=== PATIENT | male | born 1955 | race Caucasian/White ===

== ENCOUNTER → 2019-06-15 | Outpatient (CLI) | payer MEDICARE ==
[2019-06-15 14:29] LABS: Partial Thromboplastin Time 23.5 sec (22.0-30.0); Prothrombin Time 10.5 sec (9.0-12.0)
[2019-06-15 14:31] LABS: Basophils # (A) 0.1 k/uL (0-0.2); Basophils % (A) 1 %; Eosinophils # (A) 0.1 k/uL (0-0.7); Eosinophils % (A) 2 %; HCT 51.3 % (39.0-53.0); Lymphocytes # (A) 1.8 k/uL (1.0-4.8); Lymphocytes % (A) 25 %; MCH 33.1 pg (25.0-35.0); MCHC 35.1 g/dL (31.0-37.0); MCV 94.3 fL (80.0-100.0); Mean Platelet Volume 6.8; Monocytes # (A) 0.4 k/uL (0-1.0); Monocytes % (A) 6 %; Neutrophils # (A) 4.7 k/uL (1.3-7.7); Neutrophils % (A) 64 %; Platelet Count 210 k/uL (150-450); RBC 5.44 m/uL (4.30-5.90); WBC 7.3 k/uL (3.8-10.6)
[2019-06-15 14:41] LABS: ALT 35 U/L (21-72); AST 29 U/L (17-59); African American GFR (CKD) >90 (>60 ml/min/1.73 sqM); Albumin 4.5 g/dL (3.5-5.0); Alkaline Phosphatase 60 U/L (38-126); Anion Gap 8 mmol/L; Blood Urea Nitrogen 16 mg/dL (9-20); Calcium 10.5 mg/dL (8.4-10.2); Carbon Dioxide 30 mmol/L (22-30); Chloride 105 mmol/L (98-107); Glucose 110 mg/dL (74-99); Potassium 5.2 mmol/L (3.5-5.1); Sodium 143 mmol/L (137-145); Total Bilirubin 0.3 mg/dL (0.2-1.3); Total Protein 7.4 g/dL (6.3-8.2)
[2019-06-15 14:55] LABS: Appearance,Urine Clear (Clear); Bilirubin,Urine Negative (Negative); Blood,Urine Negative (Negative); Color,Urine Yellow; Glucose,Urine (UA) Negative (Negative); Ketones,Urine Negative (Negative); Leukocyte Esterase,Urine Negative (Negative); Nitrite,Urine Negative (Negative); PH, Urine 6.5 (5.0-8.0); Protein,Urine Negative (Negative); Urobilinogen,Urine <2.0 mg/dL (<2.0)
--- NOTE | 2019-06-15 17:30 | XR ---
EXAMINATION TYPE: XR chest 2V DATE OF EXAM: 06/15/2019 COMPARISON: NONE HISTORY: Preadmission testing TECHNIQUE: Frontal and lateral views of the chest are obtained. FINDINGS: Heart and mediastinum are normal. Lungs are clear. Diaphragm is normal. Bony thorax appear s normal. IMPRESSION: Normal chest
== END | disposition home or self-care (01) ==
LOC: LABPAT 13:15
PROVIDERS: ATTEND Orthopaedic Surgery Orthopaedic Surgery of the Spine
DX: Z01.818 Encounter for other preprocedural examination (principal); Z01.812 Encounter for preprocedural laboratory examination; G95.89 Other specified diseases of spinal cord
CPT/HCPCS: 71046; 80053; 81003; 85025; 85610; 85730

== ENCOUNTER → 2019-06-29 | Outpatient (CLI) | payer MEDICARE | LOC: LABPAT 13:34 | PROVIDERS: ATTEND Orthopaedic Surgery Orthopaedic Surgery of the Spine | DX: Z01.812 Encounter for preprocedural laboratory examination (principal); M50.00 Cervical disc disorder with myelopathy, unspecified cervical region | CPT/HCPCS: 36415; 86850; 86900; 86901 ==

== ENCOUNTER 2019-07-01 06:07 | Day surgery (SDC) | payer MEDICARE ==
[2019-06-22 18:07] VITALS: BMI 30.2
[~2019-07-01 06:07] MED LIST: BACITRACIN 50,000 UNIT, POLYMYXIN B 500,000 UNIT in SODIUM CHLORIDE 0.9% IRRIGATIO 1,00... IRRIGATION ONE; LIDOCAINE 1% 20 ML VIAL (10MG/ML) FOR IV START INTRADERMA PRN; ONDANSETRON 4 MG/2 ML VIAL IVP ONE
[2019-07-01] MEDS: LACTATED RINGERS 1,000 ML IV SCH (06:41)
[2019-07-01] MEDS ORDERED: SUCCINYLCHOLINE CHLORIDE 100 MG/5 ML SYR IV ONE (07:25)
[2019-07-01] MEDS ORDERED: PROPOFOL 10 MG/ML 20 ML VIAL IV ONE (07:25)
[2019-07-01] MEDS ORDERED: HYDROmorphone (PF) 1 MG/ML ONE (07:25)
[2019-07-01] MEDS ORDERED: DEXAMETHASONE SOD PHOS (MDV) 100 MG/10 ML VIAL ONE (07:25)
[2019-07-01] MEDS ORDERED: LIDOCAINE 1% INJ 10MG/ML (20 ML MDV) ONE (07:25)
[2019-07-01] MEDS ORDERED: fentaNYL (PF) 50 MCG/ML 2 ML AMP ONE (07:25)
[2019-07-01] MEDS ORDERED: ePHEDrine SULFATE/0.9% NACL/PF 50 MG/5 ML SYRINGE IV ONE (07:25)
[2019-07-01] MEDS ORDERED: MIDAZOLAM 2 MG/2 ML VIAL ONE (07:25)
[2019-07-01] MEDS ORDERED: DEXMEDETOMIDINE 200 MCG/2 ML VIAL IV ONE (07:25)
[2019-07-01] MEDS ORDERED: THROMBIN (BOVINE) 5,000 UNIT VIAL TOPICAL ONE (07:30)
[2019-07-01] MEDS ORDERED: LIDOCAINE 0.5%-EPI 1:200,000 50 ML VIAL SQ ONE (07:30)
[2019-07-01] MEDS ORDERED: GELATIN SPONGE,ABSORB (LARGE) 1 EACH SPONGE TOPICAL ONE (07:30)
--- NOTE | 2019-07-01 09:41 | XR ---
EXAMINATION TYPE: XR cervical spine 1V DATE OF EXAM: 07/01/2019 COMPARISON: NONE HISTORY: Needle placement TECHNIQUE: One crosstable lateral view cervical spine FINDINGS: Surgical instruments overlying the disc space of C4-C5 anteriorly. Multilevel degenerative disc disease and hypertrophic changes are seen. Vertebral alignment is demonstrated to the level C6. Suggestion of an endotracheal tube. Prevertebral soft tissues are somewhat thickened which may be pos tsurgical correlate clinically. IMPRESSION: Intraoperative localization
[2019-07-01] MEDS ORDERED: LACTATED RINGERS 1,000 ML IV ONE (10:01)
[2019-07-01] MEDS ORDERED: BENZOCAINE/MENTHOL LOZENG 1 EACH LOZENGE MUCOUS MEM PRN (10:13)
[2019-07-01] MEDS ORDERED: BISACODYL 10 MG SUPP RECTAL PRN (10:13)
[2019-07-01] MEDS ORDERED: HYDROmorphone 0.5 MG/0.5 ML SYRINGE IVP PRN (10:13)
[2019-07-01] MEDS ORDERED: MAGNESIUM HYDROXIDE 2,400 MG/10 ML CUP PO PRN (10:13)
[2019-07-01] MEDS ORDERED: ONDANSETRON 4 MG/2 ML VIAL IVP PRN (10:13)
[2019-07-01] MEDS ORDERED: NITROGLYCERIN SL TABS 0.4 MG TAB SUBLINGUAL PRN (10:15)
[2019-07-01] MEDS ORDERED: ALBUTEROL NEBULIZED 2.5 MG/3 ML INHALATION PRN (10:15)
--- NOTE | 2019-07-01 10:22 | P.OP ---
Date of Procedure: 07/01/19 Preoperative Diagnosis: Cervical stenosis C3 4 C4 5 C5 6, herniated nucleus pulposis C3 4 C4 5 C5 6, neck pain, upper extremity radiculopathy, history of laminoplasty C3 4 C4 5 C5 6, cervical kyphosis Postoperative Diagnosis: Same Anesthesia: GETA Pathology: none sent Condition: stable Disposition: PACU Description of Procedure: BRIEF OPERATIVE NOTE Preoperative Diagnosis:Cervical stenosis C3 4 C4 5 C5 6, herniated nucleus pulposis C3 4 C4 5 C5 6, neck pain, upper extremity radiculopathy, history of laminoplasty C3 4 C4 5 C5 6, cervical kyphosis Postoperative Diagnosis:Cervical stenosis C3 4 C4 5 C5 6, herniated nucleus pulposis C3 4 C4 5 C5 6, neck pain, upper extremity radiculopathy, history of laminoplasty C3 4 C4 5 C5 6, cervical kyphosis Procedure: Anterior cervical decompression with discectomy and fusion C3 4 C4 5 C5 6 Placement of interbody graft C3 4 C4 5 C5 6 Application of anterior cervical plate C3 4 5 and 6 Surgeon: Dr. Sauer Coding Analyst: Nate Taylor is present throughout the entire the case persistence during positioning, dissection, exposure, visualization, and all crucial elements of the case as well as closure. Anesthesia: General anesthesia Estimated blood loss: Approximately 75 mL Complications: None apparent Components implanted: K2M [place] anterior cervical plate with 8 screws and Vikos interbody allograft bone graft with 1 mL of DBX bone putty Disposition: To recovery room in good stable condition. OPERATIVE INDICATIONS The patient has had long-standing issues in their neck and upper extremities. In 2014 he was having significant stenosis and upper extremity symptoms and underwent a laminoplasty an outside institution. He initially did have some improvement but has been having worsening symptoms at his neck and upper extremities over the past year. He's been having worsening over the past several months and was found to have some evidence of cervical stenosis with disc herniation and progressive kyphosis at his cervical spine. These symptoms correlated well with his neck cervical spine imaging. The patient has been through conservative treatment. He is not having any prolonged benefit despite aggressive conservative treatment. We discussed various treatment options including surgery, and the patient wishes to proceed with surgery We discussed the risk, patient's alternatives and benefits of surgery including but not limited to, risk of bleeding risk of infection, risk of need for further surgery, risk of decreased, loss of motion, muscle function, malunion nonunion, hardware failure, nerve damage, paralysis, heart attack, and . OPERATIVE SUMMARY After discussing all the risks, patient alternatives and benefits at length, the patient elected to proceed with surgical intervention, signed informed consent, and presented for their procedure. The patient was seen and examined in the preoperative holding area and the surgical site was marked. The patient was given antibiotics and brought to the operating room. The patient was positioned on the operating room table in a supine position being careful to pad any bony prominences and pressure points. The patient was sedated and intubated by anesthesia in standard fashion. Once the airway and C- spine were stabilized the patient's arms were padded and tucked at her side, with her shoulders gently taped. The head was placed in a donut pad with the neck in good neutral alignment and position. We were careful to maintain the patient's cervical spine and good neutral alignment and position throughout. The patient was prepped and draped in a normal standard fashion. An appropriate timeout and keystone protocol performed. We were able to proceed with the surgery. The local wound area was infiltrated with local anesthetic. An incision was made transversely approximately 2-1/2 cm over the appropriate levels at C5. Dissection was taken down subcutaneously to the level of the platysma which was split in line with its fibers. Dissection was taken with a carotid approach, with the trachea and esophagus medial and the carotid sheath laterally. We dissected down to the anterior surface of the vertebral bodies. Intraoperative x-ray was taken which showed a marker at the appropriate level of C4 5. With the appropriate level positively confirmed, we were able to proceed with discectomy at the appropriate levels. All of the operative levels were exposed appropriately. The patient had all their twitches back, and there was no evidence of recurrent laryngeal issue. The wound was copiously irrigated and suctioned dry as had been done periodically throughout the case. At the appropriate level/levels, starting first at C3 4 and then moving the C4 5 and th en moving to C5 6, I established an annulotomy with an 11 blade scalpel. A discectomy was performed with a combination of pituitary rongeurs, curettes, a high-speed bur, and Kerrison rongeurs. Any anterior osteophytes were taken down. There were particularly large osteophytes anteriorly at C5 6 which were taken down. The posterior longitudinal ligament was taken down as were any posterior osteophytes. This gave good central and bilateral foraminal decompression. There is no evidence of any dural tear or leak. The endplates were prepared with a high-speed bur. With the endplates in good parallel position, I was able to size for the appropriate size interbody graft. The wound was irrigated and suctioned dry the graft was prepared and malleted into position. It had good alignment and position with the anterior surface flush with the anterior surface of the vertebral bodies from C3 to C6. This was done similarly the appropriate levels first at C3 4 and then C4 5 and then C5 6. With the grafts intact, I was able to measure and contour and appropriate sized plate. The plate was positioned at the midline over the appropriate levels from C3 to C6. Screw holes were established with a hand drill and drill guide. Screws were placed in good alignment and position with excellent bony purchase. With the discectomy and then with plate placement and was able to adequate neutral alignment and positioning of the cervical spine from C3 to C6. The screws were placed appropriately and seated well. They were seated under the locking device. The construct was checked and found to be stable. Intraoperative x-ray was taken which showed good alignment and position of the implants at the appropriate levels. There was no evidence of any dural tear or leak. Good hemostasis was maintained. The wound was copiously irrigated and suctioned dry as had been done periodically throughout the case. The platysma was closed with absorbable suture. The subcutaneous tissue was closed. The subcuticular tissue was closed with absorbable suture. The wound was cleaned and dried and dressed appropriately. A soft cervical collar was placed appropriately. The patient was woken up by anesthesia, extubated, transferred back gently to their hospital bed and brought to the recovery room in good stable condition. The patient will be admitted to the hospital for appropriate postoperative care, medical management and monitoring. We will continue to follow them closely about the postoperative course.
--- NOTE | 2019-07-01 10:35 | XR ---
EXAMINATION TYPE: XR cervical spine 1V DATE OF EXAM: 07/01/2019 COMPARISON: NONE HISTORY: Hardware placement TECHNIQUE: One intraoperative crosstable lateral view submitted FINDINGS: ET tube noted. Postsurgical change appears in near-anatomic alignment as visualized. Technique and soft tissue artif act limits the exam. Hypertrophic spurring seen at C2-C3 there appears to be multilevel facet arthrop athy. IMPRESSION: Postsurgical change
[2019-07-01] MEDS: HYDROmorphone 0.5 MG/0.5 ML SYRINGE IVP PRN ×2 (10:54→11:14)
[2019-07-01] MEDS ORDERED: DIAZEPAM 5 MG TAB PO PRN (11:06)
[2019-07-01] MEDS ORDERED: DIAZEPAM 5 MG TAB PO ONE (11:15)
[2019-07-01 16:39] LABS: Glucose,Whole Blood 201 mg/dL (75-99)
[2019-07-01 16:41] LABS: Glucose,Whole Blood 219 mg/dL (75-99)
[2019-07-01] MEDS: SODIUM CHLORIDE 0.9% 1,000 ML IV SCH ×2 (16:42→21:47)
[2019-07-01] MEDS ORDERED: ATORVASTATIN 80 MG TAB PO SCH (21:00)
[2019-07-01] MEDS ORDERED: LORATADINE 10 MG TAB PO SCH (21:00)
[2019-07-01] MEDS: HYDROcodone/APAP 5-325MG 1 EACH TAB PO PRN (21:46)
[2019-07-01] MEDS: CHOLECALCIFEROL 1,000 UNIT TAB PO SCH (21:46)
[2019-07-01] MEDS: METOPROLOL TARTRATE 50 MG TAB PO SCH (21:46)
[2019-07-02 00:14] VITALS: RESP 16
[2019-07-02] MEDS: HYDROcodone/APAP 5-325MG 1 EACH TAB PO PRN ×2 (02:20→07:03)
[2019-07-02] MEDS: METOPROLOL TARTRATE 50 MG TAB PO SCH (07:24)
[2019-07-02] MEDS: CHOLECALCIFEROL 1,000 UNIT TAB PO SCH (07:24)
[2019-07-02] MEDS: LACTATED RINGERS 1,000 ML IV SCH (07:27)
[2019-07-02 07:55] VITALS: BP 152/82; PULSE 79; TEMP 98
--- NOTE | 2019-07-02 08:44 | P.DS ---
Providers Date of admission: 07/01/71 Attending physician: Jessi Sauer Primary care physician: [facility] Hospital Course: The patient presented on the day of admission as per their operative note. He had disc herniation with significant stenosis C3 4 C4 5 and C5 6 with upper extremity radiculopathy and underwent his anterior cervical discectomy and decompression and fusion at those levels yesterday as per his operative note. He feels he is making good progress and he feels his arms making good progress as well. He is tolerating his diet adequately. Physical Exam The incision site is clean dry and intact. There is no erythema no drainage. There is no purulence no evidence of infection. His neck is soft and supple without any significant swelling. Abdomen soft and nontender. Chest has good excursion with deep inspiration and expiration. The patient has active and passive range of motion intact at the upper and lower extremities. There is no acute change in neurologic status. He has good strength in his bilateral upper extremities. Hospital Course Postoperative day #1 status post anterior cervical decompression with discectomy and fusion C3 4 C4 5 C5 6 for his disc herniation with significant cervical stenosis and upper extremity radiculopathy. He feels he is making good progress and is happy with his improvement in his symptoms thus far with surgery. The patient has been making good progress postoperatively. They have completed the prophylactic antibiotics without any signs or symptoms of infection. The patient has been able to advance their diet, and is tolerating diet adequately. The pain was initially controlled with IV medications and is now controlled appropriately with oral medications. The patient has been able to increase their mobilization. The patient has progressed appropriately. I think they are in good stable condition for discharge today. They will be sent home with appropriate prescriptions. I answered their questions to the best of my ability in a language that they can understand and they are agreeable with the plan. They will follow up as directed in approximately 2 weeks or sooner if he is having problems. Patient Condition at Discharge: Good Plan - Discharge Summary Discharge Rx Participant: Yes New Discharge Prescriptions: No Action Aspirin 81 mg PO DAILY #30 chewable Vitamin B Complex 1 cap PO DAILY Multivitamin [Men's Multi-Vitamin] 1 tab PO DAILY Cholecalciferol [Vitamin D3 (25 Mcg = 1000 Iu)] 1,000 unit PO BID Albuterol Inhaler [Ventolin Hfa Inhaler] 2 puff INHALATION RT-Q6H PRN PRN Reason: Shortness Of Breath Atorvastatin [Lipitor] 80 mg PO HS #30 tab Nitroglycerin Sl Tabs [Nitrostat] 0.4 mg SUBLINGUAL Q5M PRN #25 tab PRN Reason: Chest Pain Calcium Carbonate [Calcium] 600 mg PO DAILY Wellpinit-3 Fatty Acids [Wellpinit-3] 1,000 mg PO DAILY Magnesium 200 mg PO DAILY Loratadine [Claritin] 10 mg PO HS Losartan [Cozaar] 100 mg PO DAILY #60 tab Metoprolol Tartrate [Lopressor] 50 mg PO BID #60 tab amLODIPine [Norvasc] 10 mg PO DAILY Acetaminophen with Codeine [Tylenol with Codeine #4 Tablet] 1 tab PO Q6H PRN PRN Reason: Pain Discharge Medication List Aspirin 81 mg PO DAILY #30 chewable 08/08/14 [Rx] Albuterol Inhaler [Ventolin Hfa Inhaler] 2 puff INHALATION RT-Q6H PRN 11/11/15 [History] Cholecalciferol [Vitamin D3 (25 Mcg = 1000 Iu)] 1,000 unit PO BID 11/11/15 [History] Multivitamin [Men's Multi-Vitamin] 1 tab PO DAILY 11/11/15 [History] Vitamin B Complex 1 cap PO DAILY 11/11/15 [History] Atorvastatin [Lipitor] 80 mg PO HS #30 tab 11/14/15 [Rx] Nitroglycerin Sl Tabs [Nitrostat] 0.4 mg SUBLINGUAL Q5M PRN #25 tab 11/14/15 [Rx] Calcium Carbonate [Calcium] 600 mg PO DAILY 08/21/17 [History] Loratadine [Claritin] 10 mg PO HS 08/21/17 [History] Magnesium 200 mg PO DAILY 08/21/17 [History] Wellpinit-3 Fatty Acids [Wellpinit-3] 1,000 mg PO DAILY 08/21/17 [History] Losartan [Cozaar] 100 mg PO DAILY #60 tab 08/22/17 [Rx] Metoprolol Tartrate [Lopressor] 50 mg PO BID #60 tab 08/22/17 [Rx] Acetaminophen with Codeine [Tylenol with Codeine #4 Tablet] 1 tab PO Q6H PRN 06/22/19 [History] amLODIPine [Norvasc] 10 mg PO DAILY 06/22/19 [History]
[2019-07-02] MEDS ORDERED: NON FORMULARY DRUG (Vitamin B Complex [Vitamin B Complex] 1 CAP) PO SCH (09:00)
[2019-07-02] MEDS ORDERED: ASPIRIN 81 MG PO SCH (09:00)
[2019-07-02] MEDS ORDERED: MULTIVITAMINS, THERA 1 EACH TAB PO SCH (09:00)
[2019-07-02] MEDS ORDERED: LOSARTAN 50 MG TAB PO SCH (09:00)
[2019-07-02] MEDS ORDERED: MAGNESIUM OXIDE 400 MG TAB PO SCH (09:00)
[2019-07-02] MEDS ORDERED: amLODIPine 10 MG TAB PO SCH (09:00)
[2019-07-02] MEDS ORDERED: NON FORMULARY DRUG (Omega-3 Fatty Acids [Omega-3] 1,000 MG) PO SCH (09:00)
[2019-07-02] MEDS ORDERED: SENNOSIDES-DOCUSATE SODIUM 1 EACH TAB PO SCH (09:00)
[2019-07-02] MEDS ORDERED: CALCIUM CARBONATE 500 MG CHEWABLE PO SCH (09:00)
== END 2019-07-02 09:42 | disposition home or self-care (01) ==
LOC: OR 06:07 → 4SSUR 12:12 → OR 07-02 09:42
PROVIDERS: ATTEND Orthopaedic Surgery Orthopaedic Surgery of the Spine
DX: M48.02 Spinal stenosis, cervical region (principal); M50.11 Cervical disc disorder with radiculopathy, high cervical region; M25.78 Osteophyte, vertebrae; M96.1 Postlaminectomy syndrome, not elsewhere classified; I10 Essential (primary) hypertension; N28.9 Disorder of kidney and ureter, unspecified; J44.9 Chronic obstructive pulmonary disease, unspecified; D75.1 Secondary polycythemia; E11.9 Type 2 diabetes mellitus without complications; J40 Bronchitis, not specified as acute or chronic; R51 Headache; F17.210 Nicotine dependence, cigarettes, uncomplicated; I69.354 Hemiplegia and hemiparesis following cerebral infarction affecting left non-dominant side; I25.2 Old myocardial infarction; Z97.3 Presence of spectacles and contact lenses; Z95.5 Presence of coronary angioplasty implant and graft; Z82.49 Family history of ischemic heart disease and other diseases of the circulatory system; Z79.1 Long term (current) use of non-steroidal anti-inflammatories (NSAID); Z79.82 Long term (current) use of aspirin; Z79.899 Other long term (current) drug therapy
CPT/HCPCS: 22551; 22552 ×2; 22845; 20931; 86900; 86901; 84132; 86850; 72020; 36415; C1713 ×2; C1762; J2250; J0690 ×2; J2405; J2001; J3010; J1170 ×2; J1100; J0330; J2704

== ENCOUNTER 2022-09-18 14:50 | Emergency (ER) | payer MEDICARE ==
[2022-09-18 15:27] VITALS: BP 156/83; PULSE 82; RESP 16; TEMP 98.3
[2022-09-18 15:54] LABS: Basophils % (A) 0 %; Eosinophils % (A) 0 %; HGB 16.4 gm/dL (13.0-17.5); Lymphocytes # (A) 1.7 k/uL (1.0-4.8); Lymphocytes % (A) 13 %; MCH 32.2 pg (25.0-35.0); MCV 92.2 fL (80.0-100.0); Monocytes # (A) 0.7 k/uL (0-1.0); Monocytes % (A) 5 %; Neutrophils # (A) 10.1 k/uL (1.3-7.7); Neutrophils % (A) 79 %; Platelet Count 203 k/uL (150-450); WBC 12.8 k/uL (3.8-10.6)
--- NOTE | 2022-09-18 15:55 | ED ---
Back Pain HPI - General Source: patient, RN notes reviewed <Nery,Cyndie - Last Filed: 09/18/22 15:51> <Andrea Ricks - Last Filed: 09/18/22 21:36> - General Chief Complaint: Back Pain/Injury Stated Complaint: lower back pain Time Seen by Provider: 09/18/22 15:51 - History of Present Illness Initial Comments: Patient is a 67-year-old male who presents to the emergency department with a chief complaint of back pain. Pain started 2 weeks ago which may have been related to moving furniture the night before. Patient reports pain in his left lower back which shoots down to his left thigh. No numbness or tingling of the legs, groin, buttock region. No leg weakness. No loss of bowel or bladder function. Patient saw his primary care provider who ordered an abdominal x-ray which showed bilateral renal calculi. Patient also had a renal ultrasound which he states was normal. His primary care provider prescribed him oxycodone and steroids which has improved his pain minimally. He was then referred to Dr. Kramer. After speaking to him on the phone today patient was sent to the emergency department for further evaluation of possible kidney stone. He denies fever, chills, burning with urination, blood in urine. Does admit to some nausea this morning without vomiting. (Cyndie Gabriel) This is a 67-year-old male that presents emergency department for left buttock and leg pain. The patient stated that he was moving boxes several days ago and noted that he had increasing pain in the left buttock and lower back. The pat ient did state that the pain is no focused in the left buttock radiate down the left leg and not focused in his back. The patient did state that he had workup done this primary care physician for a possible kidney stone however it was noted that the workup was negative and he was initially sent to the urologist for workup and evaluation however the patient didn't have any kidney stones and therefore the patient was sent to the emergency department for evaluation for things other than the kidney stone. Workup was obtained in triage and was negative for any kidney stones however the patient continued discomfort in the left leg and left buttock. The patient was given a dose of prednisone by his primary care physician and did have improvement of this. The patient stated that because it continued pain he wanted to be evaluated today. The patient denied any other acute pain or completes at this time including any nausea or vomiting. (Andrea Ricks) - Related Data Home Medications Medication Instructions Recorded Confirmed Albuterol Inhaler [Ventolin Hfa 2 puff INHALATION RT-Q6H PRN 11/11/15 07/01/19 Inhaler] Cholecalciferol [Vitamin D3 (25 1,000 unit PO BID 11/11/15 07/01/19 Mcg = 1000 Iu)] Multivitamin [Men's Multi-Vitamin] 1 tab PO DAILY 11/11/15 07/01/19 Vitamin B Complex 1 cap PO DAILY 11/11/15 07/01/19 Calcium Carbonate [Calcium] 600 mg PO DAILY 08/21/17 07/01/19 Loratadine [Claritin] 10 mg PO HS 08/21/17 07/01/19 Magnesium 200 mg PO DAILY 08/21/17 07/01/19 [place]-3 Fatty Acids [[place]-3] 1,000 mg PO DAILY 08/21/17 07/01/19 Acetaminophen with Codeine 1 tab PO Q6H PRN 06/22/19 07/01/19 [Tylenol with Codeine #4 Tablet] amLODIPine [Norvasc] 10 mg PO DAILY 06/22/19 07/01/19 Previous Rx's Medication Instructions Recorded Aspirin 81 mg PO DAILY #30 chewable 08/08/14 Atorvastatin [Lipitor] 80 mg PO HS #30 tab 11/14/15 Nitroglycerin Sl Tabs [Nitrostat] 0.4 mg SUBLINGUAL Q5M PRN #25 tab 11/14/15 Losartan [Cozaar] 100 mg PO DAILY #60 tab 08/22/17 Metoprolol Tartrate [Lopressor] 50 mg PO BID #60 tab 08/22/17 HYDROcodone/APAP 7.5-325MG [[place] 1 tab PO Q4H PRN 7 Days #42 tab 07/02/19 7.5-325] Lidocaine 5% Patch [Lidoderm] 1 patch TOPICAL DAILY #14 patch 09/18/22 Naproxen [EC-Naprosyn] 500 mg PO BID #30 tab 09/18/22 methocarbamoL [Robaxin-750] 750 mg PO TID #52 tab 09/18/22 methylPREDNISolone Dose Pack 4 mg PO DIRECTED #1 packet 09/18/22 [Medrol Dose Pack] Allergies Allergy/AdvReac Type Severity Reaction Status Date / Time No Known Allergies Allergy Verified 06/22/19 18:00 Review of Systems ROS Other: All systems not noted in ROS Statement are negative. <Cyndie Gabriel - Last Filed: 09/18/22 15:51> ROS Other: All systems not noted in ROS Statement are negative. <Andrea Ricks - Last Filed: 09/18/22 21:36> ROS Statement: Those systems with pertinent positive or pertinent negative responses have been documented in the HPI. Past Medical History Past Medical History: Coronary Artery Disease (CAD), Chest Pain / Angina, CVA/TIA, Diabetes Mellitus, Hyperlipidemia, Hypertension, Myocardial Infarction (SD), Pneumonia Additional Past Medical History / Comment(s): BRONCHITIS, TIA 2013, "CLUSTER HEADACHES" Last Myocardial Infarction Date:: 2015 History of Any Multi-Drug Resistant Organisms: None Reported Past Surgical History: Heart Catheterization With Stent, Orthopedic Surgery, Tonsillectomy Additional Past Surgical History / Comment(s): elbow sx2 first was to repair injury and 2nd to removed bone chips, throat polyps removed(benign), cervical sx. dental implant Past Anesthesia/Blood Transfusion Reactions: No Reported Reaction Additional Past Anesthesia/Blood Transfusion Reaction / Comment(s): combative waking from throat surg-thinks probably d/t mask on face & hx. of being intubated for few days w/epiglottitis, did fine w/cervical surg. Date of Last Stent Placement:: 2015 Past Psychological History: No Psychological Hx Reported Past Alcohol Use History: None Reported Past Drug Use History: None Reported - Past Family History Father Family Medical History: Cancer, Coronary Artery Disease (CAD), Hypertension, Prostate Disorder Additional Family Medical History / Comment(s): prostate cancer Mother Additional Family Medical History / Comment(s): at age 46 from brain anuerysm <Cyndie Gabriel - Last Filed: 09/18/22 15:51> General Exam Limitations: no limitations General appearance: alert, in no apparent distress, obese Head exam: Present: atraumatic, normocephalic, normal inspection Eye exam: Present: normal appearance, PERRL Pupils: Present: normal accommodation ENT exam: Present: normal exam, normal oropharynx, mucous membranes moist Neck exam: Present: normal inspection, full ROM Respiratory exam: Present: normal lung sounds bilaterally Cardiovascular Exam: Present: regular rate, normal rhythm, normal heart sounds GI/Abdominal exam: Present: soft, normal bowel sounds Extremities exam: Present: normal inspection, full ROM Back exam: Present: normal inspection, full ROM, tenderness (TTP over the posterior left buttock consistent with sciatica) Neurological exam: Present: alert, oriented X3, CN II-XII intact Psychiatric exam: Present: normal affect, normal mood Skin exam: Present: warm, dry <Andrea Ricks - Last Filed: 09/18/22 21:36> Course Vital Signs 09/18/22 15:24 Temperature 98.3 F Pulse Rate 82 Respiratory 16 Rate Blood Pressure 156/83 O2 Sat by Pulse 96 Oximetry Medical Decision Making - Lab Data Result diagrams: 09/18/22 15:30 09/18/22 15:30 <Andera Ricks - Last Filed: 09/18/22 21:36> - Medical Decision Making Was pt. sent in by a medical professional or institution (Dr. PA, ANALYST GEOCHEMICAL PROSPECTING, urgent care, hospital, or halfway...) When possible be specific @ -No Did you speak to anyone other than the patient for history (EMS, parent, family, police, friend...)? What history was obtained from this source @ -No Did you review nursing and triage notes (agree or disagree)? Why? @ -I reviewed and agree with nursing and triage notes Were old charts reviewed (outside hosp., previous admission, EMS record, old EKG, old radiological studies, urgent care reports/EKG's, halfway records)? Report findings @ -No old charts were reviewed Differential Diagnosis (chest pain, altered mental status, abdominal pain women, abdominal pain men, vaginal bleeding, weakness, fever, dyspnea, syncope, headache, dizziness, GI bleed, back pain, seizure, CVA, palpatations, mental health)? @ -Lower back muscle strain, left sciatic pain EKG interpreted by me (3pts min.). @ -None X-rays interpreted by me (1pt min.). @ -None done CT interpreted by me (1pt min.). @ -A CT abdomen and pelvis was obtained in triage and was interpreted by myself showing no acute abdominal or pelvic process. There was colonic diverticulosis without evidence of diverticulitis. There was no kidney stone noted. U/S interpreted by me (1pt. min.). @ -None done What testing was considered but not performed or refused? (CT, X-rays, U/S, labs)? Why? @ -None What meds were considered but not given or refused? Why? @ -None Did you discuss the management of the patient with other professionals (professionals i.e. Dr., PA, ANALYST [employer]HE[employer]OSPECTING, lab, RT, psych nurse, psych social worker, director of automation, teacher, reserve officer, rehabilitation caseworker)? Give summary @ -No Was smoking cessation discussed for >3mins.? @ -No Was critical care preformed (if so, how long)? @ -No Were there social determinants of health that impacted care today? How? (Homelessness, low income, unemployed, alcoholism, drug addiction, transportation, low edu. Level, literacy, decrease access to med. care, half-way, rehab)? @ -No Was there de-escalation of care discussed even if they declined (Discuss DNR or withdrawal of care, Hospice)? DNR status @ -No What co-morbidities impacted this encounter? (DM, HTN, Smoking, COPD, CAD, Cancer, CVA, ARF, Chemo, Hep., AIDS, mental health diagnosis, sleep apnea, morbid obesity)? @ -Hypertension Was patient admitted / discharged? Hospital course, mention meds given and route, prescriptions, significant lab abnormalities, going to OR and other pertinent info. @ -The patient was seen and evaluated emergency department. Physical exam, the patient was resting in bed without any acute distress. Vital signs were stable. On physical exam the patient had reproducible pain consistent with sciatic nerve pain. The patient was given Toradol, Norflex and lidocaine patches in the emergency department. The patient was given a prescription for naproxen, Robaxin and lidocaine patches as well as a Medrol Dosepak. The patient was advised to follow-up with his primary care physician for further workup and evaluations report back to the emergency department if his pain became acutely worse. The patient was agreeable to this and all discretions were answered. The patient was discharged home in stable condition. Undiagnosed new problem with uncertain prognosis? @ -No Drug Therapy requiring intensive monitoring for toxicity (Heparin, Nitro, Insulin, Cardizem)? @ -No Were any procedures done? @ -No Diagnosis/symptom? @ -Left sciatica Acute, or Chronic, or Acute on Chronic? @ -Acute Uncomplicated (without systemic symptoms) or Complicated (systemic symptoms)? @ -Uncomplicated Side effects of treatment? @ -No Exacerbation, Progression, or Severe Exacerbation? @ -No Poses a threat to life or bodily function? How? (Chest pain, [place], SD, pneumonia, PE, COPD, DKA, ARF, appy, cholecystitis, CVA, Diverticulitis, Homicidal, Suicidal, threat to staff... and all critical care pts) @ -No (Andrea Ricks) - Lab Data Lab Results 09/18/22 09/18/22 09/18/22 Range/Units 15:30 15:30 15:30 WBC 12.8 H (3.8-10.6) k/uL RBC 5.10 (4.30-5.90) m/uL Hgb 16.4 (13.0-17.5) gm/dL Hct 47.0 (39.0-53.0) % MCV 92.2 (80.0-100.0) fL MCH 32.2 (25.0-35.0) pg MCHC 35.0 (31.0-37.0) g/dL RDW 14.0 (11.5-15.5) % Plt Count 203 (150-450) k/uL MPV 8.0 Neutrophils % 79 % Lymphocytes % 13 % Monocytes % 5 % Eosinophils % 0 % Basophils % 0 % Neutrophils # 10.1 H (1.3-7.7) k/uL Lymphocytes # 1.7 (1.0-4.8) k/uL Monocytes # 0.7 (0-1.0) k/uL Eosinophils # 0.0 (0-0.7) k/uL Basophils # 0.0 (0-0.2) k/uL Sodium 135 L (137-145) mmol/L Potassium 4.6 (3.5-5.1) mmol/L Chloride 103 (98-107) mmol/L Carbon Dioxide 26 (22-30) mmol/L Anion Gap 6 mmol/L BUN 25 H (9-20) mg/dL Creatinine 0.90 (0.66-1.25) mg/dL Est GFR (CKD-EPI)AfAm >90 (>60 ml/min/1.73 sqM) Est GFR (CKD-EPI)NonAf 89 (>60 ml/min/1.73 sqM) Glucose 281 H (74-99) mg/dL Calcium 9.1 (8.4-10.2) mg/dL Total Bilirubin 0.6 (0.2-1.3) mg/dL AST 24 (17-59) U/L ALT 40 (4-49) U/L Alkaline Phosphatase 57 (38-126) U/L Total Protein 6.3 (6.3-8.2) g/dL Albumin 3.9 (3.5-5.0) g/dL Urine Color Yellow Urine Appearance Clear (Clear) Urine pH 5.5 (5.0-8.0) Ur Specific [place] 1.024 (1.001-1.035) Urine Protein Negative (Negative) Urine Glucose (UA) 4+ H (Negative) Urine Ketones Negative (Negative) Urine Blood Negative (Negative) Urine Nitrite Negative (Negative) Urine Bilirubin Negative (Negative) Urine Urobilinogen <2.0 (<2.0) mg/dL Ur Leukocyte Esterase Negative (Negative) Disposition <Cyndie Gabriel - Last Filed: 09/18/22 15:51> Is patient prescribed a controlled substance at d/c from ED?: No Time of Disposition: 18:00 <Andrea Ricks - Last Filed: 09/18/22 21:36> Clinical Impression: Sciatica Disposition: HOME SELF-CARE Condition: Stable Instructions (If sedation given, give patient instructions): Sciatica (ED) Prescriptions: Naproxen [EC-Naprosyn] 500 mg PO BID #30 tab Lidocaine 5% Patch [Lidoderm] 1 patch TOPICAL DAILY #14 patch methylPREDNISolone Dose Pack [Medrol Dose Pack] 4 mg PO DIRECTED #1 packet methocarbamoL [Robaxin-750] 750 mg PO TID #52 tab Referrals: Richard Root MD [Primary Care Provider] - 1-2 days
[2022-09-18 16:03] LABS: Appearance,Urine Clear (Clear); Bilirubin,Urine Negative (Negative); Blood,Urine Negative (Negative); Color,Urine Yellow; Glucose,Urine (UA) 4+ (Negative); Ketones,Urine Negative (Negative); Leukocyte Esterase,Urine Negative (Negative); Nitrite,Urine Negative (Negative); PH, Urine 5.5 (5.0-8.0); Protein,Urine Negative (Negative); Specific Gravity,Urine 1.024 (1.001-1.035); Urobilinogen,Urine <2.0 mg/dL (<2.0)
--- NOTE | 2022-09-18 16:18 | CT ---
EXAMINATION TYPE: CT abdomen pelvis wo con CT DLP: 898 mGycm, Automated exposure control for dose reduction was used. DATE OF EXAM: 09/18/2022 4:08 PM COMPARISON: None CLINICAL INDICATION:Male, 67 years old with history of left flank pain; TECHNIQUE: Standard CT of the abdomen and pelvis without IV or oral contrast. Lack of IV or oral co ntrast limits evaluation of solid and hollow organ viscera. Coronal and sagittal reformats were perfo rmed. FINDINGS: LOWER CHEST: Unremarkable ABDOMEN LIVER: Unremarkable noncontrast appearance GALLBLADDER AND BILE DUCTS: Contracted gallbladder. No biliary ductal dilatation. PANCREAS: Unremarkable noncontrast appearance SPLEEN: Unremarkable noncontrast appearance ADRENAL GLANDS: Unremarkable noncontrast appearance. KIDNEYS AND URETERS: No hydronephrosis. There are bilateral calculi likely vascular in etiology. Left renal lower pole 2.0 cm cyst. PELVIS BLADDER: Incompletely distended but grossly unremarkable. REPRODUCTIVE: Coarse calcifications of the prostate gland are identified. ABDOMEN & PELVIS STOMACH AND BOWEL: Stomach and duodenum are unremarkable. Distal colonic diverticulosis without evide nce for acute diverticulitis.The appendix is within normal limits. No evidence of bowel obstruction. PERITONEUM: No evidence of pneumoperitoneum or free fluid. VASCULATURE: Moderate atherosclerotic calcifications are present throughout the abdominal aorta and i ts branches. No evidence of aortic aneurysm. MUSCULOSKELETAL: No acute osseous abnormalities. Mild disc degeneration changes are present throughou t the thoracolumbar spine. LYMPH NODES: No gross evidence for lymphadenopathy. SOFT TISSUE/ABDOMINAL WALL: Tiny fat filled umbilical hernia. IMPRESSION: 1. No acute abdominal/pelvic process. 2. Colonic diverticulosis without evidence for acute diverticulitis.
[2022-09-18 16:38] LABS: ALT 40 U/L (4-49); AST 24 U/L (17-59); African American GFR (CKD) >90 (>60 ml/min/1.73 sqM); Albumin 3.9 g/dL (3.5-5.0); Alkaline Phosphatase 57 U/L (38-126); Anion Gap 6 mmol/L; Blood Urea Nitrogen 25 mg/dL (9-20); Calcium 9.1 mg/dL (8.4-10.2); Carbon Dioxide 26 mmol/L (22-30); Chloride 103 mmol/L (98-107); Glucose 281 mg/dL (74-99); Non-African American GFR(CKD) 89 (>60 ml/min/1.73 sqM); Potassium 4.6 mmol/L (3.5-5.1); Sodium 135 mmol/L (137-145); Total Bilirubin 0.6 mg/dL (0.2-1.3); Total Protein 6.3 g/dL (6.3-8.2)
[2022-09-18] MEDS ORDERED: KETOROLAC 15 MG/ML 1 ML VIAL IM STA (17:58)
[2022-09-18] MEDS ORDERED: ORPHENADRINE 30 MG/ML 2 ML VIAL IM STA (17:58)
[2022-09-18] MEDS ORDERED: LIDOCAINE 5% PATCH TOPICAL SCH (18:15)
== END 2022-09-18 18:50 | disposition home or self-care (01) ==
LOC: EC 14:50
DX: M54.32 Sciatica, left side (principal); I10 Essential (primary) hypertension; I25.10 Atherosclerotic heart disease of native coronary artery without angina pectoris; I25.2 Old myocardial infarction; E11.9 Type 2 diabetes mellitus without complications; Z79.899 Other long term (current) drug therapy
CPT/HCPCS: 36415; 80053; 85025; 81003; 74176; 99284; 96372 ×2; J2360; J1885

== ENCOUNTER → 2023-01-17 | Outpatient (CLI) | payer MEDICARE ==
--- NOTE | 2023-01-18 07:05 | MR ---
EXAMINATION TYPE: MR shoulder RT wo con DATE OF EXAM: 01/17/2023 COMPARISON: Right shoulder x-ray December 2022 HISTORY: no prior, right shoulder pain for 4 months decreased ROM, no injury TECHNIQUE: Multiplanar, multisequence imaging of the right shoulder is performed without contrast. FINDINGS: Rotator Cuff: Focal retracted tear of the supraspinatus tendon by 1.3 cm coronal image 15. Increased signal infraspinatus tendon with focal tearing involving posterior 1/5 fibers. There is then retracte d full-thickness tearing at articular surface coronal image 22 for reference. Surrounding fluid is pr esent. Acromioclavicular Joint: Moderate narrowing and moderate superior capsular hypertrophy. Mild to moder ate spurring distal clavicle sagittal image 14. Glenohumeral Joint: Small to moderate size joint effusion. No significant spurring. Labrum: The labrum appears grossly intact given limitation of non-arthrogram study. Biceps Tendon: The long head of biceps is in normal location within bicipital groove. Bone marrow signal: No focal abnormal marrow signal is appreciated. Other: No additional significant abnormality is appreciated. IMPRESSION: 1. Full-thickness retracted tears of the supraspinatus and infraspinatus tendons.
== END | disposition home or self-care (01) ==
LOC: RADMRIMAIN 12:48
PROVIDERS: ATTEND Orthopaedic Surgery
DX: M75.121 Complete rotator cuff tear or rupture of right shoulder, not specified as traumatic (principal)

== ENCOUNTER → 2023-02-19 | Day surgery (SDC) | payer MEDICARE ==
[2023-02-14 14:26] VITALS: BMI 33.6
--- NOTE | 2023-02-18 09:22 | P.HPOR ---
History of Present Illness H&P Date: 02/18/23 Chief Complaint: Right shoulder pain The patient is a 67-year-old [id number] retired gentleman who presents with right shoulder pain after an injury approximate 4 months ago lifting of golf bag. He felt a pop in his shoulder. He said pain ever since. He has had a difficult time with overhead activity and is having symptoms at night. He tried medications along with activity modifications without significant relief. He denies previous problems. Review of Systems Negative except as in HPI Past Medical History Past Medical History: Coronary Artery Disease (CAD), Cancer, Chest Pain / Angina, CVA/TIA, Diabetes Mellitus, Hyperlipidemia, Hypertension, Myocardial Infarction ([place]), Pneumonia Additional Past Medical History / Comment(s): BRONCHITIS, TIA 2013, "CLUSTER H EADACHES" DIET CONTROL DIABETES, POLYCYTHEMIA VERA, Last Myocardial Infarction Date:: 2015 History of Any Multi-Drug Resistant Organisms: None Reported Past Surgical History: Heart Catheterization With Stent, Orthopedic Surgery, Tonsillectomy Additional Past Surgical History / Comment(s): elbow sx2 first was to repair injury and 2nd to removed bone chips, throat polyps removed(benign), cervical sx X 2 (LAMINECTOMY AND FUSION). dental implant, COLONOSCOPY Past Anesthesia/Blood Transfusion Reactions: No Reported Reaction Additional Past Anesthesia/Blood Transfusion Reaction / Comment(s): combative waking from throat surg-thinks probably d/t mask on face & hx. of being intubated for few days w/epiglottitis, did fine w/cervical surg. Date of Last Stent Placement:: 2015 Smoking Status: Former smoker - Past Family History Father Family Medical History: Cancer, Coronary Artery Disease (CAD), Hypertension, Prostate Disorder Additional Family Medical History / Comment(s): prostate cancer Mother Additional Family Medical History / Comment(s): at age 46 from brain anuerysm Medications and Allergies Home Medications Medication Instructions Recorded Confirmed Type Aspirin 81 mg PO DAILY #30 chewable 08/08/14 02/14/23 Rx Multivitamin [Men's Multi-Vitamin] 1 tab PO DAILY 11/11/15 02/14/23 History Vitamin B Complex 1 cap PO DAILY 11/11/15 02/14/23 History Losartan [Cozaar] 100 mg PO DAILY #60 tab 08/22/17 02/14/23 Rx amLODIPine [Norvasc] 10 mg PO DAILY 06/22/19 02/14/23 History Naproxen [EC-Naprosyn] 500 mg PO BID #30 tab 09/18/22 02/14/23 Rx Atorvastatin [Lipitor] 40 mg PO HS 02/14/23 02/14/23 History Cholecalciferol (Vitamin D3) 125 mcg PO DAILY 02/14/23 02/14/23 History [Vitamin D3 (125 MCG = 5,000 IU)] HYDROcodone/APAP 10-325MG [[place] 1 tab PO Q6HR PRN 02/14/23 02/14/23 History 10-325] Metoprolol Tartrate [Lopressor] 100 mg PO DAILY 02/14/23 02/14/23 History Tamsulosin [Flomax] 0.4 mg PO DAILY 02/14/23 02/14/23 History Allergies Allergy/AdvReac Type Severity Reaction Status Date / Time vaccine adjuvant system, Allergy Anaphylaxis Verified 02/14/23 14:12 [id number] liposomal [From Shingrix (PF)] varicella-zoster virus Allergy Anaphylaxis Verified 02/14/23 14:12 glycoprotein E, recombinant [From Shingrix (PF)] Physical Examination - Shoulder right Tenderness with palpation: anterior Pain: with abduction, with forward flexion ROM: forward flexion: 140 degrees ROM: internal rotation: lower lumbar ROM: external rotation: 20 degrees Crepitus with motion: Yes Strength: abduction: 4/5 Strength: external rotation: 4/5 Tests: internal impingement tests: positive, external impingment tests: positive Results The patient is a well-developed well-nourished male proximal A5 foot 7, 210 pounds of endomorphic habits. HEENT exam is nonfocal, neck is supple. He is tender about the right shoulder anterior subacromial space. He has moderate crepitus. Impingement test, Neer test, and speed test are positive. He has pain with liftoff. His distal neurovascular appears intact in the right upper extremity. - Diagnostic results Shoulder MRI: image reviewed (MRI of the right shoulder is reviewed and shows evidence of a retracted rotator cuff tear involving the supraspinatus and infraspinatus. No fatty infiltration is noted.) Assessment and Plan Assessment: Acute right rotator cuff tear Plan: I talked to the patient at length regarding his condition along with treatment options. This point is quite some to my having pain and weakness after this acute injury despite conservative measures. After a thorough discussion he opts to proceed with surgery. We'll plan to proceed with arthroscopic evaluation with probable subacromial decompression, arthroscopic rotator cuff repair, in addition to possible biceps tenotomy versus tenodesis. We will likely perform that as an outpatient procedure. Risks and benefits were discussed at length in layman's terms.
[~2023-02-19] MED LIST changes: -BACITRACIN 50,000 UNIT, POLYMYXIN B 500,000 UNIT in SODIUM CHLORIDE 0.9% IRRIGATIO 1,00... IRRIGATION ONE; +DEXAMETHASONE SOD PHOSPHATE 4 MG/ML 1 ML VIAL IV ONE; +DEXAMETHASONE SOD PHOSPHATE 4 MG/ML 1 ML VIAL ONE; +EPINEPHrine (PF) 1 ML in SODIUM CHLORIDE 0.9% IRRIGATIO 3,000 ML IRRIGATION ONE; +GLYCOPYRROLATE 0.2 MG/ML 2 ML VIAL ONE; +HYDROmorphone 0.5 MG/0.5 ML SYRINGE IVP PRN; +INSULIN ASPART (NovoLOG) 100 UNIT/ML VIAL SQ ONE; +LACTATED RINGERS 1,000 ML IV ONE; +LACTATED RINGERS 1,000 ML IV SCH; -LIDOCAINE 1% 20 ML VIAL (10MG/ML) FOR IV START INTRADERMA PRN; +LIDOCAINE 2% INJ 20 MG/ML (2 ML VIAL) ONE; +MIDAZOLAM 2 MG/2 ML VIAL IVP ONE; +MIDAZOLAM 2 MG/2 ML VIAL ONE; +NEOSTIGMINE 1 MG/ML 10 ML VIAL ONE; +PROPOFOL 10 MG/ML 20 ML VIAL IV ONE; +ROCURONIUM 10 MG/ML (5 ML VIAL) IV ONE; +ROPIVACAINE 5 MG/ML 30 ML VIAL ONE; +SUCCINYLCHOLINE CHLORIDE 200 MG/10 ML VIAL IV ONE; +ePHEDrine 50 MG/ML 1 ML VIAL ONE; +fentaNYL (PF) 50 MCG/ML 2 ML AMP ONE
[2023-02-19 11:48] LABS: Glucose,Whole Blood 231 mg/dL (70-110)
[2023-02-19 12:16] VITALS: RESP 16
--- NOTE | 2023-02-19 14:50 | P.ANPRN ---
Procedure Note - Anesthesia - Nerve Block Performed Right Interscalene Single Time Out Performed: Yes Date of Procedure: 02/19/23 Procedure Start Time: 12:02 Procedure Stop Time: 12:08 Location of Patient: PreOp Indication: Acute Post-Operative Pain, Analgesia, Requested by Surgeon Sedation Type: Sedate with meaningful contact maintained Preparation: Sterile Prep Position: Sitting Catheter: Indwelling Needle Types: [place] Needle Gauge: 21 Ultrasound used to visualize needle placement: Yes Ultrasound used to observe medication spread: Yes Injectate: 0.5% Ropivacaine (see comment for volume) (20cc + 4mg dexamethasone) Blood Aspirated: No Pain Paresthesia on Injection Noted: No Resistance on Injection: Normal Image Stored and Saved: Yes Events: Uneventful and Well Tolerated
--- NOTE | 2023-02-19 14:59 | P.OP ---
Date of Procedure: 02/19/23 Preoperative Diagnosis: Right rotator cuff tear Postoperative Diagnosis: 4 cm right rotator cuff tear/high-grade partial-thickness tear intra-articular portion proximal biceps Procedure(s) Performed: Right shoulder arthroscopic subacromial decompression/biceps tenodesis/rotator cuff repair Implants: Arthrex 4.75 mm swivel lock anchor 3, 5.5 mm swivel lock anchor 2 [facility]est[facility] Surgeon: Walt Cobian Financial Health Counselor #1: Ruben Osborn Estimated Blood Loss (ml): 10 Pathology: none sent Condition: stable Disposition: PACU Indications for Procedure: The patient is a 67-year-old male presents after injuring his right shoulder with persistent pain and weakness despite attempted conservative measures. A discussion of the risks and benefits of operative intervention versus continued conservative measures was made with the patient. He opted to proceed with surgery. Operative risks to include infection, neurovascular injury, development of blood clots, possible tendon rerupture, possible postoperative stiffness and need for subsequent procedures was discussed. Informed consent was obtained. Operative Findings: As below Description of Procedure: The patient was brought to the operating room, and after induction of general anesthesia was placed in a beachchair position. A preoperative interscalene block was placed for postoperative analgesia. I examined the right shoulder. There was no gross block to passive motion or gross glenohumeral instability. The right upper extremity was prepped and draped in normal fashion. The bony outlines the acromion, distal clavicle, and coracoid process were outlined with a skin marker. The glenohumeral joint was inflated with 50 mL of saline utilizing a spinal needle from posterior approach. A posterior portal was made through a 5 mm skin incision 1 cm medial and inferior to the posterior lateral border time. A blunt trocar was used to easily into the joint. Diagnostic arthroscopy was performed. An anterior portal was made just lateral to the coracoid process entering the joint above the subscapularis tendon. The subscapularis tendon appeared to be intact. Anterior labrum was intact. The inferior recess was inspected. The posterior labrum was intact. There was a high-grade partial-thickness tear of the long head of the biceps involving interarticular portion. Biceps tenodesis was performed releasing the biceps from the superior labrum and anchoring it in the upper bicipital groove. A 4.75 mm swivel lock anchor was utilized with good purchase. On inspection the rotator cuff, a full-thickness tear involving the supraspinatus and infraspinatus was noted with some retraction. The arthroscope was then placed into the subacromial space.. A lateral portal was made 2 centimeters inferior to the anterior lateral border of the acromion. The rotator cuff was then mobilized with a traction suture. This was then brought back to the greater tuberosity. The soft tissue on the undersurface of the acromion was debrided with a motorized shaver and electrocautery clearly defining the anterior medial and lateral borders as well as the distal clavicle. An anterior inferior acromioplasty was performed with a motorized arlen starting anterolateral, then extending this posteriorly, then extending this medially. I converted to a flat acromion and this was verified in the posterior and lateral viewing portals. The greater tuberosity was lightly decorticating with a shaver down to a bleeding bony surface. An accessory posterior lateral portal was made through 5 mm skin incision off the posterior lateral edge of the acromion and was used for viewing. An accessory superior lateral portal was made just off the lateral edge of the acromion for anchor placement. 2 anchors were then placed just off the articular surface with the appropriate starting awl. 4.75 mm anchors preloaded with #2 fiber tape were placed. Good purchase was obtained. These fiber tapes were then passed the rotator cuff with a scorpion suture passer. A lateral row was created crisscrossing these tapes. 5.5 mm swivel lock anchors x2 were placed laterally. Good purchase was obtained. Final arthroscopic view showed adequate compression at the footprint. The arthroscope was then removed. The portals were closed with simple 3-0 nylon sutures. A sterile dressing was applied in addition to an abductor brace. The patient was then awoken from general anesthesia and transferred to recovery room in good condition. Blood loss was estimated at 10 mL. No complications were incurred. Sponge and needle counts were correct in the case. Ruben ESTRADA assisted and the major components of the case to include arm positioning, anchor placement, and rotator cuff repair.
[2023-02-19 15:15] VITALS: TEMP 96.9
[2023-02-19 15:51] LABS: Glucose,Whole Blood 228 mg/dL (70-110)
[2023-02-19 17:23] VITALS: BP 136/70; PULSE 83
== END | disposition home or self-care (01) ==
LOC: OR 11:03
PROVIDERS: ATTEND Orthopaedic Surgery
DX: S46.011A Strain of muscle(s) and tendon(s) of the rotator cuff of right shoulder, initial encounter (principal); G89.18 Other acute postprocedural pain; I25.10 Atherosclerotic heart disease of native coronary artery without angina pectoris; E11.9 Type 2 diabetes mellitus without complications; E78.5 Hyperlipidemia, unspecified; I25.2 Old myocardial infarction; I10 Essential (primary) hypertension; J18.9 Pneumonia, unspecified organism; Z86.73 Personal history of transient ischemic attack (TIA), and cerebral infarction without residual deficits; Z95.5 Presence of coronary angioplasty implant and graft; Z90.89 Acquired absence of other organs; Z79.899 Other long term (current) drug therapy; Z98.890 Other specified postprocedural states; Z87.891 Personal history of nicotine dependence; Z82.49 Family history of ischemic heart disease and other diseases of the circulatory system; Z79.82 Long term (current) use of aspirin; Z88.7 Allergy status to serum and vaccine
CPT/HCPCS: 64415; 29827; 29826; C1713 ×3; C1894; J2250; J0330; J1100; J2710; J0690; J2405; J0171; J3010; J2795; J2704; J2001

== ENCOUNTER → 2023-06-21 | Outpatient (CLI) | payer MEDICARE ==
--- NOTE | 2023-06-22 07:49 | MR ---
EXAMINATION TYPE: MR shoulder RT wo con DATE OF EXAM: 06/21/2023 COMPARISON: Outside right shoulder x-ray April 22, 2023 HISTORY: Right shoulder pain due to fall 04-05-23 after surgery on shoulder, surgery 02-19-23. TECHNIQUE: Multiplanar, multisequence imaging of the right shoulder is performed without contrast. FINDINGS: Rotator Cuff: New artifact from surgical change in the humeral head from interval rotator cuff surger y. No recurrent full-thickness retracted tears are seen. There are areas of increased signal in the s upraspinatus and infraspinatus tendons identified on current study. Subscapularis tendon is intact. R otator cuff muscle bulk is preserved. Acromioclavicular Joint: Moderate narrowing and superior capsular hypertrophy is redemonstrated with mild to moderate spurring. Glenohumeral Joint: Small to moderate-sized joint effusion redemonstrated. No significant spurring. N o significant change from prior. Labrum: The superior labrum is now abnormal and torn. Biceps Tendon: The long head of biceps is in normal location within bicipital groove. There is new in creased signal beginning at axial image 11 with more prominent signal extending superiorly. Attachmen t labral anchor now not identified. Retracted tear is suspected. Bone marrow signal: No focal abnormal marrow signal is appreciated. Other: No additional significant abnormality is appreciated. IMPRESSION: 1. Interval successful surgical repair of the rotator cuff with some new tendinosis identified but no new full-thickness retracted tears seen. 2. There is however now significant superior labral tear and tear of the long head of biceps tendon i ncluding labral anchor.
== END | disposition home or self-care (01) ==
LOC: RADMRIMAIN 07:35
PROVIDERS: ATTEND Orthopaedic Surgery
DX: M75.111 Incomplete rotator cuff tear or rupture of right shoulder, not specified as traumatic (principal); M67.813 Other specified disorders of tendon, right shoulder